=== PATIENT | female | born 1985 | race Caucasian/White ===

== ENCOUNTER 2018-04-03 10:47 | Emergency (ER) | payer OTHER ==
[~2018-04-03] VITALS: Ht 162.6 cm; Wt 59.0 kg
[~2018-04-03 10:47] MED LIST: ATIVAN0.5 MG ORAL; CYMBALTA30 MG ORAL; LAMICTAL25 MG ORAL
--- NOTE | 2018-04-03 10:51 | NUR ---
ED Nurse Note: Pt brought in by ambulance from plastic surgery center due to panic atack after a botox procedure on her forehead. Hx of anxiety and takes atian and cymbalta. Pt is AAO x4, crying and screaming in anxiety. VSS.
[2018-04-03] MEDS ORDERED: LORazepam Inj 2mg/ml 1ml IV ONE (11:15)
[2018-04-03 12:44] VITALS: BP 125/84
[2018-04-03] MEDS ORDERED: ATIVAN1 MG ORAL (12:56)
--- NOTE | 2018-04-03 13:14 | NUR ---
ED Nurse Note: pt cleared to be d/c per ERMD, pt discharge instruction with prescription provided, pt education done via discussion and hand out, pt advised to follow up with pcp or return to ed if s/s worsen or new s/s develop, pt iv d/c and dressing applied, wrist band removed, pt verbalized understanding and agrees with plan, all belongings left with pt, pt denies SI/HI/VH/AH, ambulatory w/ steady gait, resp even and unlabored on RA, airway intact. VSS.
[2018-04-03 13:16] VITALS: BP 126/87
--- NOTE | 2018-04-04 06:58 | Emergency Room Report ---
History of Present Illness General Chief Complaint: General Complaint Source: Patient Present Illness HPI 32-year-old female presents ED by EMS for evaluation. Patient brought in complaining of dizziness and vomiting, crying. Per EMS patient came from a plastic surgery Center where she had received Botox injections in her forehead. States immediately after receiving injections she felt dizzy and lightheaded and states she "passed out". Upon arrival patient is crying and anxious. Denies any pain. History of anxiety. States she takes Ativan for her anxiety. States that she's not had prior Botox injections to this. Denies any rash. Denies any throat swelling or tongue swelling. Denies any alcohol or drug use. No other aggravating relieving factors. Denies any other associated symptoms Allergies: Coded Allergies: No Known Allergies (Unverified , 04/03/18) Patient History Past Medical History: psych hx Past Surgical History: none Pertinent Family History: none Social History: Denies: smoking, alcohol use, drug use Last Menstrual Period: few days ago Now: No Immunizations: UTD Reviewed Nursing Documentation: PMH: Agreed; PSxH: Agreed Nursing Documentation-PMH Past Medical History: No History, Except For History Of Psychiatric Problem: Yes - anxiety and depression Review of Systems All Other Systems: negative except mentioned in HPI Physical Exam Vital Signs Date Time Temp Pulse Resp B/P (MAP) Pulse Ox O2 Delivery O2 Flow Rate FiO2 04/03/18 10:42 99.1 99 16 112/80 99 Room Air Sp02 EP Interpretation: reviewed, normal General Appearance: alert, GCS 15, non-toxic, mild distress Head: normocephalic, atraumatic Eyes: bilateral eye normal inspection, bilateral eye PERRL ENT: hearing grossly normal, normal pharynx, no angioedema, normal voice Neck: full range of motion, supple/symm/no masses Respiratory: chest non-tender, lungs clear, normal breath sounds, speaking full sentences Cardiovascular #1: regular rate, rhythm, no edema Cardiovascular #2: 2+ carotid (R), 2+ carotid (L), 2+ radial (R), 2+ radial (L) , 2+ dorsalis pedis (R), 2+ dorsalis pedis (L) Gastrointestinal: normal bowel sounds, non tender, soft, non-distended, no guarding, no rebound Rectal: deferred Genitourinary: normal inspection, no CVA tenderness Musculoskeletal: back normal, gait/station normal, normal range of motion, non- tender Neurologic: alert, oriented x3, responsive, motor strength/tone normal, sensory intact, speech normal Psychiatric: judgement/insight normal, memory normal, no suicidal/homicidal ideation, no delusions, depressed affect, anxious Reflexes: 3+ bicep (R), 3+ bicep (L), 3+ tricep (R), 3+ tricep (L), 3+ knee (R) , 3+ knee (L) Skin: normal color, no rash, warm/dry, well hydrated Lymphatic: no adenopathy Medical Decision Making Diagnostic Impression: Primary Impression: Anxiety ER Course Hospital Course 32 yo F presents with dizziness, nausea and vomiting and anxiety after recieving botox injections Differential diagnoses include: arrythmia, dehydration, anxiety Clinical course Patient placed on stretcher. on environmental monitoring specialist. After initial history, physical exam reveals young female in mild distress. Patient is crying. Focal neurological deficits. Blood pressure okay. Vital stable. No arrhythmia on monitor Patient given Ativan, IV fluids here. History is fairly evident that patient suffered a panic attack. Patient notes history of anxiety. States that she was taking initially 1 mg Ativan 3 times a day. States that her psychiatrist has weaned her down to 0.5 mg Ativan with 20 tablets for the month. Patient has been telling her psychiatrist that this is not enough medication for her and she is having increased panic attacks recently I do not suspect any signs of the allergic reaction. There is no urticaria. No tongue swelling or throat swelling. Her symptoms were likely anxiety related. Has no cardiac risk factors. No signs of arrhythmia on monitor On reassessment patient feeling better. Feels anxious still but is no longer crying. No longer nauseous. Discussed findings with patient. I will provide her with 1 mg Ativan for a short course. Recommended patient follow-up with her psychiatrist to discuss dosage adjustment Safe for discharge. No signs of SI or HI. No indication for emergent psychiatric evaluation I. I feel this is a highly complex case requiring extensive working including EKG/Rhythm strip, Xray/CT/US, Blood/urine lab work, repeat exams while in ED, and administration of strong opiates/narcotics for pain control, admission to hospital or close patient follow up. Diagnosis - anxiety Stable and discharged to home with Rx Ativan. Followup with PMD/psych. Return to ED if symptoms recur or worse Last Vital Signs Date Time Temp Pulse Resp B/P (MAP) Pulse Ox O2 Delivery O2 Flow Rate FiO2 04/03/18 13:16 98.4 78 16 126/87 98 Room Air Status: improved Disposition: HOME, SELF-CARE Condition: Stable Scripts Lorazepam* (ATIVAN*) 1 Mg Tablet 1 MG ORAL THREE TIMES A DAY for 5 Days, TAB Prov: Lazaro Yañez MD 04/03/18 Referrals: NOT CHOSEN IPA/,REFERRING (PCP) [facility] - Peds ER - Patient Instructions: Panic Attacks, [id number] Lazaro Yañez MD Apr 04, 2018 06:58
== END 2018-04-03 13:18 | disposition home or self-care (01) ==
LOC: EDBD 10:47 → EMR 11:11
DX: F41.9 Anxiety disorder, unspecified (principal); R42 Dizziness and giddiness; R11.2 Nausea with vomiting, unspecified
CPT/HCPCS: 96374; 96375; 99284; J2405; J7040